=== PATIENT | female | born 1955 | race African-American/Black ===

== ENCOUNTER 2017-05-05 19:43 | Emergency (ER) | payer MEDICARE, OTHER ==
[~2017-05-05] VITALS: Ht 160 cm; Wt 70.0 kg
[~2017-05-05 19:43] MED LIST: CALC500T37 PO; CYAN1000P IM; HYDR-3580 PO; POTA20TA5 PO
[2017-05-05 19:46] VITALS: BP 208/93; PULSE 88; RESP 16; TEMP 98.2; O2SAT 100
[2017-05-05 20:02] VITALS: BP 187/88; PULSE 64; RESP 16; O2SAT 100
--- NOTE | 2017-05-05 20:09 | PD ---
HPI Chief Complaint: ENT Complaint Time Seen by Provider: 19:54 Travel History International Travel<30 days: No Contact w/Intl Traveler<30days: No Traveled to known affect area: No History of Present Illness HPI Patient comes in complaining of sore throat, nonproductive cough, and congestion ongoing for 2 days. Patient states that her grandson was sick approximately a week ago with unknown virus and her had similar symptoms earlier this week. Patient states she been using cough drops for symptomatic relief. Patient denies doing anything else for this. Patient denies anything making it worse. Patient denies any chest pain, shortness of breath, headache, fevers, loss or change in bowel or bladder, abdominal pain, numbness or tingling anywhere, nausea, vomiting, or headaches. PFSH Past Medical History Blood Disorders: No Depression: Yes Cancer: No Cardiovascular Problems: No Diminished Hearing: No Endocrine: No Gastrointestinal Disorders: No Genitourinary: No Headaches: Yes Immune Disorder: No Musculoskeletal: Yes (CHRONIC BACK PAIN) Neurologic: Yes (MEMORY PROBLEM FROM PREVIOUS BRAIN TRAUMA) Psychiatric: No Reproductive: No Respiratory: No Tetanus Vaccination: < 5 Years ?: Not LMP: maupause Menopausal: Yes Tubal Ligation: Yes (1985) Past Surgical History Section: Yes (1982, 1985) Gynecologic Surgery: Yes (c-sectionx2) Joint Replacement: Yes (RUE) Neurologic Surgery: Yes (PLATE IN HEAD/BRAIN SURGERY) Other Surgery: Yes ( x2) Social History Alcohol Use: No Tobacco Use: No Substance Use: No Allergies-Medications (Allergen,Severity, Reaction): Coded Allergies: No Known Allergies (Verified , 04/03/17) Reported Meds & Prescriptions Reported Meds & Active Scripts Active Reported Potassium Chloride Microencaps 20 Meq Tab 20 Meq PO DAILY Calcium Ascorbate 500 Mg Tab 500 Mg PO DAILY Hydrocodone-Acetaminophen 7.5-325 mg Tab 1 Tab PO BID PRN Review of Systems Except as stated in HPI: all other systems reviewed are Neg Physical Exam Narrative GENERAL: Well-developed, well nourished, in no acute distress, and non-ill appearing. SKIN: Focused skin assessment warm and dry. HEAD: Atraumatic. Normocephalic. EYES: Pupils equal and round. EOMI. No scleral icterus. No injection or drainage. ENT: No nasal bleeding or discharge. Mucous membranes pink and moist. Tympanic membranes pearly [place]mond bilaterally. Posterior pharynx nonerythematous without exudate. Uvula is midline. No tenderness to facial sinuses to palpation. NECK: Trachea midline. No cervical lymphadenopathy. Supple. No nuclear rigidity. CARDIOVASCULAR: Regular rate and rhythm. No murmur appreciated. RESPIRATORY: No accessory muscle use. No respiratory distress. Clear to auscultation. Breath sounds equal bilaterally. No coughing on exam. MUSCULOSKELETAL: No obvious deformities. No clubbing. No cyanosis. No edema. Full range of motion. NEUROLOGICAL: Awake and alert. No obvious cranial nerve deficits. Motor grossly within normal limits. Normal speech. PSYCHIATRIC: Appropriate mood and affect; insight and judgment normal. Data Data Last Documented VS Vital Signs Date Time Temp Pulse Resp B/P (MAP) Pulse Ox O2 Delivery O2 Flow Rate FiO2 05/05/17 21:24 82 18 144/67 (92) 98 Room Air 05/05/17 19:46 98.2 Orders Orders Group A Rapid Strep Screen (05/05/17 19:59) Influenzae A/B Antigen (05/05/17 19:59) Strep Culture (Group A) (05/05/17 20:20) Ed Discharge Order (05/05/17 21:15) MDM Medical Decision Making Medical Screen Exam Complete: Yes Emergency Medical Condition: Yes Differential Diagnosis Strep pharyngitis, viral pharyngitis, influenza, viral syndrome, upper respiratory infection, sinusitis, other Narrative Course Patient in no obvious distress upon re-evaluation. All pertinent laboratory result(s) discussed with patient. Any questions/concerns in reference to patient diagnosis/condition discussed and clarified prior to patient's discharge. Reinforced sheer importance of close follow up with patient's primary physician or primary care clinic. Instructed patient to return to ED immediately, if symptoms return/worsen. Patient showed understanding of above instructions. Further instructions and recommendations were detailed in discharge paperwork. Patient ambulated without difficulty out of ED at discharge. Diagnosis Primary Impression: Viral syndrome Additional Impression: Elevated blood pressure reading Referrals: [facility] Patient Instructions: General Instructions, Hypertension (ED), Viral Syndrome ( ED) Additional Instructions: Follow-up with your primary care physician this week for reevaluation and further evaluation of elevated blood pressure noted here today. Use over-the- counter cold and flu medication for symptomatic relief. Follow instructions on the packaging. Drink plenty of non-caffeinated and nonalcoholic fluids.. Return to the emergency department if symptoms get worse. Disposition: 01 DISCHARGE HOME Condition: David Brandon May 05, 2017 20:09
[2017-05-05 21:24] VITALS: BP 144/67; PULSE 82; RESP 18; O2SAT 98
== END 2017-05-05 21:25 | disposition home or self-care (01) ==
LOC: NEPD 19:43
DX: B34.9 Viral infection, unspecified (principal); R03.0 Elevated blood-pressure reading, without diagnosis of hypertension; Z79.899 Other long term (current) drug therapy
CPT/HCPCS: 87081; 87804; 87880; 99283